=== PATIENT | female | born 1965 | race Caucasian/White ===

== ENCOUNTER 2018-03-18 11:29 | Emergency (ER) | payer BC, OTHER ==
[2018-03-18 11:47] VITALS: BP 124/75; PULSE 75; TEMP 97.2; BMI 23.3
--- NOTE | 2018-03-18 11:57 | PDOC ---
Attending Attestation - Resident Resident Name: Vernon White - ED Attending Attestation I have performed the following: I have examined & evaluated the patient, The case was reviewed & discussed with the resident, I agree w/resident's findings & plan, Exceptions are as noted - HPI HPI: 52 yo F presents with R foot pain after mechanical fall down a few stairs. She states she was on her phone, did not see and missed a step. She felt a pop and then sharp pain. She is having difficulty walking due to pain. Denies weakness, numbness, ankle pain. No other injuries. She took aleve prior to arrival, incomplete relief. - Physicial Exam PE: GENERAL: Awake, alert, and fully oriented, in no acute distress HEAD: No signs of trauma EYES: PERRLA, EOMI, sclera anicteric, conjunctiva clear ENT: Auricles normal inspection, hearing grossly normal, nares patent, oropharynx clear without exudates. Moist mucosa EXTREMITIES: R foot with tenderness just proximal to the 5th metatarsal, small hematoma present at area of tenderness. No ankle tenderness. Distal N/V intact. Remainder of extremities with normal range of motion, no edema. No clubbing or cyanosis. No cords, erythema, or tenderness NEUROLOGICAL: Cranial nerves II through XII grossly intact. Normal speech. Motor and sensation intact. SKIN: Warm, Dry, normal turgor, no rashes or lesions noted. - Medical Decision Making XR reviewed with radiology, suspected avulsion fracture to R foot lateral to the tarsal bones, which is in the same region as the pain. Will place in posterior splint. 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, will f/u there.
--- NOTE | 2018-03-18 12:02 | PDOC ---
History of Present Illness - History of Present Illness Initial Comments: 03/18/18 11:53 52 yo F w/ PMH of Thyroid cancer s/p thyroidectomy 2001, HTN, tonsilectomy, p/w R foot pain s/p mechanical fall. pt was walking down the stairs at home and was on cell phone, missed a step, tripped and fell. pt fell on R foot and heard a pop sound. Pt denies LOC, hitting head, or any prodromal sxs. pt has been in good health w/ no recent issues. pt took 2 alleves which took pain from 01/19 to 11/19. pt unable to walk on the foot and says it hurts more when she lifts foot up. endorses some swelling. denies any loss of sensation or strength in foot. endorses some nausea. Deneis fever, chills, cp, abd pain, sob, v/d, urinary sxs, numbness, tingling, LOPEZ, blurry vision FH: sister thyroid cancer PMH: takes vit D and calcium SH: 1/ pk/dy 20 yrs, quit in 2001 etoh couple glass of wine w/ dinner denies drugs <Vernon White - Last Filed: 03/18/18 13:12> <Francisca Santiago - Last Filed: 03/18/18 13:53> - General Chief Complaint: Injury Stated Complaint: RIGHT ANKLE & FOOT INJURY Past History - Past Medical History COPD: No HTN: Yes Hypercholesterolemia: Yes Thyroid Disease: Yes - Suicide/Smoking/Psychosocial Hx Smoking History: Former smoker Have you smoked in the past 12 months: No If you are a former smoker, when did you quit?: 2001 Information on smoking cessation initiated: No Hx Alcohol Use: Yes Drug/Substance Use Hx: No Substance Use Type: None <Vernon White - Last Filed: 03/18/18 13:12> <Francisca Santiago - Last Filed: 03/18/18 13:53> - Past Medical History Allergies/Adverse Reactions: Allergies Allergy/AdvReac Type Severity Reaction Status Date / Time [place] [employer] Derivatives Allergy Unknown Verified 03/18/18 11:47 HOT PEPPER Allergy Unknown Uncoded 03/18/18 11:47 Home Medications: Ambulatory Orders Bi Est Cream 70:30 1 applic VG DAILY 03/18/18 Cetirizine HCl 5 mg PO DAILY 03/18/18 Cholecalciferol (Vitamin D3) [Vitamin D3] 1,000 unit PO DAILY 03/18/18 Docosahexanoic Acid/Epa [Fish Oil Concentrate Softgel] 1 each PO DAILY 03/18/18 Estrogens, Conjugated 0.25 mg PO DAILY 03/18/18 Famotidine [Acid Controller] 20 mg PO DAILY 03/18/18 Hydrochlorothiazide [Hctz -] 25 mg PO DAILY 03/18/18 Lisinopril [Zestril] 2.5 mg PO DAILY 03/18/18 Magnesium Oxide [Magnesium] 500 mg PO DAILY 03/18/18 Naproxen Sodium [Aleve] 440 mg PO ONCE 03/18/18 Natural Thyroid 65 mg PO DAILY 03/18/18 Ubidecarenone [Co Q-10] 50 mg PO DAILY 03/18/18 Review of Systems - Review of Systems Constitutional: Yes: See HPI HEENTM: Yes: See HPI Respiratory: Yes: See HPI Cardiac (ROS): Yes: See HPI ABD/GI: Yes: See HPI : Yes: See HPI Musculoskeletal: Yes: See HPI Integumentary: Yes: See HPI Neurological: Yes: See HPI Endocrine: Yes: See HPI Hematologic/Lymphatic: Yes: See HPI <Vernon White - Last Filed: 03/18/18 13:12> *Physical Exam - Vital Signs Last Vital Signs Temp Pulse Resp BP Pulse Ox 97.2 F L 75 16 124/75 100 03/18/18 11:29 03/18/18 11:29 03/18/18 11:29 03/18/18 11:29 03/18/18 11:29 - Physical Exam Comments: 03/18/18 12:06 General: Well-nourished well-developed individual, NAD HEENT: NCAT MMM, no erythema or exudate Neck: Supple, no lymphadenopathy Respiratory: CTAB cardio: RRR S1 S2 no m/r/g Abdomen:+BS Soft, NTND Extremities: radial and DP pulses 2+ b/l. Warm, dry, no cyanosis, clubbing, or edema. RLE mild foot swelling, sensation intact, TTP on dorsum of foot, malleoli are non tender. pt able to move foot and toes in all direction although more difficult w/ dorsiflexion Skin: No rashes Neuro: Alert and oriented x3, nonfocal exam, grossly intact Psych: Normal mood and affect <Vernon White - Last Filed: 03/18/18 13:12> - Vital Signs Last Vital Signs Temp Pulse Resp BP Pulse Ox 97.2 F L 75 16 124/75 100 03/18/18 11:29 03/18/18 11:29 03/18/18 11:29 03/18/18 11:29 03/18/18 11:29 <Francisca Santiago - Last Filed: 03/18/18 13:53> Procedures - Splinting Splint Location: Right: Foot Pre-Proc Neuro Vasc Exam: normal Hand-Made Type: orthoglass Splint Type: Yes: Short Leg Post-Proc Neuro Vasc Exam: normal Timoteo Bandage: 4" Progress: Pt crutch trained. <Francisca Santiago - Last Filed: 03/18/18 13:53> ED Treatment Course - Medications Given in the ED: ED Medications Discontinued Medications Generic Name Dose Route Start Last Admin Trade Name Kathleen PRN Reason Stop Dose Admin Acetaminophen 650 mg 03/18/18 12:15 03/18/18 12:31 Tylenol - PO 03/18/18 12:16 Not Given ONCE ONE Acetaminophen 325 mg 03/18/18 12:15 03/18/18 12:31 Tylenol - PO 03/18/18 12:16 Not Given ONCE ONE Acetaminophen 1,000 mg 03/18/18 12:28 03/18/18 12:31 Tylenol - PO 03/18/18 12:29 1,000 mg ONCE ONE Administration <Francisca Santiago - Last Filed: 03/18/18 13:53> Medical Decision Making - Medical Decision Making 03/18/18 12:12 52 yo F w/ PMH of Thyroid cancer s/p thyroidectomy 2002, HTN, tonsilectomy, p/w R foot pain s/p mechanical fall vitals wnl. no LOC or trauma to head. 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 and will make appointment pt stable and ready for discharge <Vernon White - Last Filed: 03/18/18 13:12> *DC/Admit/Observation/Transfer <Vernon White - Last Filed: 03/18/18 13:12> - Discharge Dispostion Decision to Admit order: No <JackFrancisca - Last Filed: 03/18/18 13:53> Diagnosis at time of Disposition: Avulsion fracture - Discharge Dispostion Disposition: HOME Condition at time of disposition: Stable - Referrals Referrals: Kelsi Arango [Primary Care Provider] - - Patient Instructions Printed Discharge Instructions: DI for Foot Fracture, DI for Avulsion Fracture , How to Take Care of Your Splint Additional Instructions: you came to ER for foot pain after falling down the stairs. Foot x ray showed a small fracture We gave you ice pack, Tylenol, and a foot splint Please avoid weight bearing on your right foot for 1 month Please use crutches Please use advil, aleve, or tylenol for pain Please follow up with your thermodynamics engineer in 1 week If you experience any loss of sensation, strength, movement, color, or warmth in the foot or any worsening pain please call 911 or come back to the ER. - Post Discharge Activity
[2018-03-18] MEDS ORDERED: ACETAMINOPHEN 325 MG TABLET (FP) PO ONE ×2 (12:15)
[2018-03-18] MEDS ORDERED: ACETAMINOPHEN 500 MG TABLET (FP) PO ONE (12:28)
[2018-03-18] MEDS ORDERED: ACETAMINOPHEN 500 MG TABLET (FP) ONE (12:28)
== END 2018-03-18 13:19 | disposition home or self-care (01) ==
LOC: FER 11:29
PROC: 2W3QX1Z Immobilization of Right Lower Leg using Splint (ICD-10-PCS; principal; 2018-03-18)
DX: S92.201A Fracture of unspecified tarsal bone(s) of right foot, initial encounter for closed fracture (principal); W01.10XA Fall on same level from slipping, tripping and stumbling with subsequent striking against unspecified object, initial encounter; Y93.9 Activity, unspecified; Y92.89 Other specified places as the place of occurrence of the external cause; I10 Essential (primary) hypertension; Z85.850 Personal history of malignant neoplasm of thyroid
CPT/HCPCS: 73630-TC-RT-FY; 99282-25

== ENCOUNTER 2018-09-23 05:06 | Emergency (ER) | payer BC ==
[2018-09-23] MEDS ORDERED: methylPREDNISolone NA SUCC 125 MG/2 ML VIAL IVPB ONE (05:15)
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
[2018-09-23 05:18] VITALS: BP 132/90; TEMP 97.8; BMI 23.0
[2018-09-23] MEDS ORDERED: methylPREDNISolone NA SUCC 125 MG/2 ML VIAL ONE (05:19)
[2018-09-23 05:58] VITALS: PULSE 106
[2018-09-23 06:03] LABS: BASO % 0.2 % (0-2.0); HEMATOCRIT 37.2 % (32.4-45.2); HEMOGLOBIN 12.8 GM/dL (10.7-15.3); LYMPH % 12.7 % (8-40); MCHC 34.4 g/dl (32.0-36.0); MEAN CELL VOLUME 90.3 fl (80-96); MEAN PLT VOLUME 7.4 fl (7.5-11.1); MONO % 2.6 % (3.8-10.2); NEUT % 84.5 % (42.8-82.8); PLATELET COUNT 357 K/MM3 (134-434); RBC 4.12 M/mm3 (3.60-5.2); RDW 12.8 % (11.6-15.6); WHITE BLOOD COUNT 5.7 K/mm3 (4.0-10.0)
[2018-09-23 06:31] LABS: ALBUMIN 4.3 g/dl (3.4-5.0); ALK PHOS 69 U/L (45-117); ANION GAP 14 MMOL/L (8-16); BILIRUBIN,TOTAL 0.5 mg/dL (0.2-1); BLOOD UREA NITROGEN 17 mg/dL (7-18); CALCIUM 9.4 mg/dL (8.5-10.1); CHLORIDE 103 mmol/L (98-107); CO2 21 mmol/L (21-32); CREATININE 0.7 mg/dL (0.55-1.3); GLUCOSE,RANDOM 132 mg/dL (74-106); POTASSIUM 3.4 mmol/L (3.5-5.1); SGOT/AST 39 U/L (15-37); SGPT/ALT 43 U/L (13-61); SODIUM 138 mmol/L (136-145); TOT PROT 7.8 g/dl (6.4-8.2)
[2018-09-23] MEDS ORDERED: ACETAMINOPHEN 325 MG TABLET (FP) PO ONE (06:41)
[2018-09-23] MEDS ORDERED: ACETAMINOPHEN 500 MG TABLET (FP) ONE (06:46)
== END 2018-09-23 06:50 | disposition home or self-care (01) ==
LOC: FER 05:06
PROC: 3E033GC Introduction of Other Therapeutic Substance into Peripheral Vein, Percutaneous Approach (ICD-10-PCS; principal; 2018-09-23)
DX: J30.1 Allergic rhinitis due to pollen (principal); R05 Cough; J98.01 Acute bronchospasm; J45.909 Unspecified asthma, uncomplicated; Z87.891 Personal history of nicotine dependence; I10 Essential (primary) hypertension; E78.00 Pure hypercholesterolemia, unspecified; E07.9 Disorder of thyroid, unspecified
CPT/HCPCS: 36415; 80053; 84703; 85025; 99282-25

== ENCOUNTER 2021-11-14 06:52 | Emergency (ER) | payer BC ==
[2021-11-14 06:58] VITALS: BP 148/97; PULSE 93; TEMP 98.2; BMI 23.0
[2021-11-14] MEDS ORDERED: ALBUTEROL SO4 2.5/IPRATROPIUM 0.5 INH SOL 3 ML VIAL.NEB. NEB ONE ×2 (07:14→07:16)
== END 2021-11-14 08:02 | disposition home or self-care (01) ==
LOC: FER 06:52
PROC: 3E0F7GC Introduction of Other Therapeutic Substance into Respiratory Tract, Via Natural or Artificial Opening (ICD-10-PCS; principal; 2021-11-14)
DX: J30.1 Allergic rhinitis due to pollen (principal)
CPT/HCPCS: 99283-25

== ENCOUNTER 2021-11-17 02:38 | Emergency (ER) | payer BC ==
[2021-11-17] MEDS ORDERED: methylPREDNISolone NA SUCC 125 MG/2 ML VIAL IVPB ONE ×2 (02:52→03:04)
[2021-11-17] MEDS ORDERED: ALBUTEROL SO4 2.5/IPRATROPIUM 0.5 INH SOL 3 ML VIAL.NEB. NEB ONE (03:06)
[2021-11-17 03:08] VITALS: BP 138/82
[2021-11-17 03:10] VITALS: TEMP 98.3
[2021-11-17] MEDS ORDERED: methylPREDNISolone NA SUCC 125 MG/2 ML VIAL ONE (03:13)
[2021-11-17] MEDS ORDERED: guaiFENesin/CODEINE 10 ML UNIT-DOSE CUPS PO ONE (03:45)
[2021-11-17] MEDS ORDERED: guaiFENesin/CODEINE 10 ML UNIT-DOSE CUPS ONE (03:51)
== END 2021-11-17 04:16 | disposition home or self-care (01) ==
LOC: FER 02:38
PROC: 3E0F7GC Introduction of Other Therapeutic Substance into Respiratory Tract, Via Natural or Artificial Opening (ICD-10-PCS; principal; 2021-11-17)
PROC: 3E033GC Introduction of Other Therapeutic Substance into Peripheral Vein, Percutaneous Approach (ICD-10-PCS; 2021-11-17)
DX: J20.8 Acute bronchitis due to other specified organisms (principal)
CPT/HCPCS: 99284-25